=== PATIENT | female | born 1970 | race Two or more races ===

== ENCOUNTER 2019-04-24 01:13 | Emergency (ER) | payer OTHER ==
[2019-04-24] MEDS ORDERED: RANITIDINE HCL 150 MG TABLET (FP) PO ONE (01:51)
[2019-04-24] MEDS ORDERED: MAG HYDROX/AL HYDROX/SIMETH 30 ML UNIT-DOSE CUP PO ONE (01:51)
--- NOTE | 2019-04-24 01:51 | PDOC ---
History of Present Illness - General Chief Complaint: Chest Pain Stated Complaint: CHEST PAIN Time Seen by Provider: 04/24/19 01:49 - History of Present Illness Initial Comments: Aggie Núñez is a 49yo otherwise healhty woman who presents with burning throat and sternal pain that started immediately after drinking black seed oil for the first time tonight. She reports that she had acute onset of burning pain in her throat, mid-chest and epigastrium along with an episode of vomiting. She continues to have burning pain but no longer feels nauseated. She denies any other associated symptoms including lightheadedness, sweating, or difficulty breathing. Past History - Past Medical History Allergies/Adverse Reactions: Allergies Allergy/AdvReac Type Severity Reaction Status Date / Time No Known Allergies Allergy Verified 04/24/19 02:38 - Suicide/Smoking/Psychosocial Hx Smoking History: Never smoked Review of Systems - Review of Systems Comments:: General: No fevers, no chills, no weight or appetite change, no malaise HEENT: No changes in vision, no changes in hearing, no congestion, no sore throat CV: No chest pain, no palpitations, no LE edema Pulm: No SOB, no cough, no wheezing GI: See HPI, no change in bowel habits, no melena : No frequency, no urgency, no dysuria Musc: No back pain, no joint swelling, no recent injury Skin: No rash, no lesions, no erythema Endo: No excessive thirst, no heat/cold intolerance Heme: No unusual bruising or bleeding, no swollen glands Neuro: No syncope, no numbness/tingling, no focal weakness Vasc: No claudication Psych: No recent change in mood, no SI or HI *Physical Exam - Vital Signs Last Vital Signs Temp Pulse Resp BP Pulse Ox 98.7 F 72 18 110/87 97 04/24/19 01:25 04/24/19 01:25 04/24/19 01:25 04/24/19 01:25 04/24/19 01:25 - Physical Exam Comments: General: Comfortable, no acute distress HEENT: PERRL, EOMI, MMM, voice normal, normal neck ROM, no LAD Cards: RRR, no murmur appreciated Pulm: Comfortable on room air, clear to auscultation bilaterally Abd: Soft, nontender, nondistended Ext: Atraumatic. No LE edema. ROM intact Vasc: Extremities WWP Skin: Normal color, no rashes or lesions Neuro: A&Ox3, CN grossly intact, normal speech, motor/sensory grossly intact and symmetric Psych: Mood appropriate to situation Medical Decision Making - Medical Decision Making 04/24/19 01:51 Aggie Núñez is a 49yo otherwise healhty woman who presents with burning throat and sternal pain and 1x episode of vomiting that started immediately after drinking black seed oil for the first time tonight. She denies associated symptoms. - Suspect reflux v gastritis, but given age will check EKG - Maalox, lidocaine, ranitidine for symptoms 04/24/19 03:21 - Feels improved. - EKG w/ NSR, HR 69,normal asix, normal intervals, no ST changes. Normal EKG - Will d/c home with PMD follow up. Discussed with Dr Llanos. Kalina Maguire PGY2 *DC/Admit/Observation/Transfer Diagnosis at time of Disposition: Acid reflux Qualifiers: Esophagitis presence: esophagitis presence not specified Qualified Code(s): K21.9 - Gastro-esophageal reflux disease without esophagitis - Discharge Dispostion Disposition: HOME Condition at time of disposition: Stable Decision to Admit order: No - Referrals Referrals: [facility] [place] [Provider Group] - Patient Instructions Printed Discharge Instructions: DI for Heartburn Additional Instructions: Discharge Instructions: You were seen in the emergency department for burning throat pain. This is likely due to stomach upset from the supplement you took at home tonight. Your EKG did not show any problems with your heart Home Care and Follow Up: - It is recommended that you avoid supplements without discussing their use with a physician - If you have continued symptoms, you may use maalox or mylanta as needed. If the symptoms are persistent, consider using Pepcid or Xantac daily to help prevent acid reflux - Make an appointment to follow up with your regular doctor within one week. If you need to establish care, you have been given information for the [facility] clinic - Seek immediate care for any worsening symptoms, persistent vomiting, chest pain with difficulty breathing or sweating, or any other medical emergency. - Post Discharge Activity
[2019-04-24] MEDS ORDERED: LIDOCAINE VISCOUS 2% ORAL/TOP 20 ML UNIT-DOSE CUP MM ONE (01:52)
[2019-04-24 02:18] VITALS: TEMP 98.7; BMI 24.7
[2019-04-24] MEDS ORDERED: MAG HYDROX/AL HYDROX/SIMETH 30 ML UNIT-DOSE CUP ONE (02:29)
[2019-04-24] MEDS: MAG HYDROX/AL HYDROX/SIMETH -MYLANTA- ORAL SUSPENSION PO ONE ×2 (02:37→02:48)
--- NOTE | 2019-04-24 03:40 | PDOC ---
Documentation entered by Yvette Amado SCRIBE, acting as scribe for Yuly Llanos DO. Yuly Llanos DO: This documentation has been prepared by the barbara, Yvette Amado SCRIBE, under my direction and personally reviewed by me in its entirety. I confirm that the documentation accurately reflects all work , treatment, procedures, and medical decision making performed by me. Attending Attestation - Resident Resident Name: Kalina Maguire - ED Attending Attestation I have performed the following: I have examined & evaluated the patient, The case was reviewed & discussed with the resident, I agree w/resident's findings & plan - HPI HPI: 04/24/19 01:58 The patient is a 49 year old female with no reported past medical history presents to the emergency department with a burning sensation to the throat after drinking black seed oil. The son states he also drank the oil, however he didnt have any adverse reaction to the oil. Denies chest pain or shortness of breath. - Physicial Exam PE: 04/24/19 01:58 Agree with resident exam - Medical Decision Making 04/24/19 03:39 49-year-old female with throat irritation after drinking herbal supplement EKG is within normal limits Patient has no chest pain back pain or associated nausea or vomiting Plan for DC home
[2019-04-24 04:00] VITALS: BP 115/90; PULSE 74
--- NOTE | 2019-04-24 10:19 | EKG ---
Test Reason : Blood Pressure : / mmHG Vent. Rate : 069 BPM Atrial Rate : 069 BPM P-R Int : 164 ms QRS Dur : 082 ms QT Int : 400 ms P-R-T Axes : 062 048 049 degrees QTc Int : 428 ms NORMAL SINUS RHYTHM NORMAL ECG NO PREVIOUS ECGS AVAILABLE Confirmed by CE CESAR, TORRES ([id number]) on 04/24/2019 10:19:23 AM Referred By: Confirmed By:TORRES ENCINAS MD
== END 2019-04-24 03:59 | disposition home or self-care (01) ==
LOC: JER 01:13
DX: K21.9 Gastro-esophageal reflux disease without esophagitis (principal)
CPT/HCPCS: 93005; 93010; 99282-25

== ENCOUNTER 2019-08-25 14:16 | Emergency (ER) | payer OTHER ==
[2019-08-25 14:29] VITALS: BP 123/75; PULSE 78; TEMP 97.7; BMI 26.5
--- NOTE | 2019-08-25 14:42 | PDOC ---
History of Present Illness - General Chief Complaint: Injury Stated Complaint: LT SIDE RIB INJURY Time Seen by Provider: 08/25/19 14:29 History Source: Patient Exam Limitations: No Limitations (L sided rib pain X 5 days) - History of Present Illness Is this a multiple visit Asthma Patient?: No Associated Symptoms: denies: chest pain, cough, diaphoresis, fever/chills, headaches, loss of appetite, malaise, nausea/vomiting, rash, seizure, shortness of breath Past History - Travel Close contact w/someone who was outside of country & ill: No - Past Medical History Allergies/Adverse Reactions: Allergies Allergy/AdvReac Type Severity Reaction Status Date / Time No Known Allergies Allergy Verified 08/25/19 14:21 Home Medications: Ambulatory Orders Ibuprofen [Motrin Ib] 200 mg PO Q6H PRN 08/25/19 Naproxen [EC-Naproxen] 500 mg PO BID 7 Days #14 tablet 08/25/19 Naproxen [Naprosyn -] 500 mg PO BID 7 Days #14 tablet 08/25/19 Spirometers and Accessories [Mistassist] 1 each MC ACDIN 7 Days #1 each Spirometers and Accessories [Mistassist] 1 each MC ACDIN 7 Days #1 each COPD: No - Psycho Social/Smoking Cessation Hx Smoking History: Never smoked Hx Alcohol Use: No Drug/Substance Use Hx: No Review of Systems - Review of Systems Constitutional: No: Chills, Fever HEENTM: No: Nose Pain, Throat Pain, Throat Swelling, Difficulty Swallowing Respiratory: No: Cough, Shortness of Breath, SOB with Exertion, SOB at Rest, Wheezing, Productive cough Cardiac (ROS): No: Chest Pain, Lightheadedness, Palpitations, Syncope, Chest Tightness ABD/GI: No: Nausea, Vomiting Musculoskeletal: No: Back Pain, Muscle Pain Neurological: No: Numbness, Dizziness *Physical Exam - Vital Signs Last Vital Signs Temp Pulse Resp BP Pulse Ox 97.7 F 78 18 123/75 98 08/25/19 14:21 08/25/19 14:21 08/25/19 14:21 08/25/19 14:21 08/25/19 14:21 - Physical Exam General Appearance: Yes: Nourished HEENT: positive: EOMI, GEOVANNY Neck: positive: Supple Respiratory/Chest: positive: Lungs Clear, Normal Breath Sounds, Other ( tenderness reproducible in left side of ribs 6-7, no rash or ecchymosis noted) Cardiovascular: positive: Regular Rhythm, Regular Rate, S1, S2 Gastrointestinal/Abdominal: positive: Normal Bowel Sounds, Soft Neurologic: positive: sheriff's sergeant II-XII NML intact, Fully Oriented, Alert, Normal Mood/ Affect, Normal Response, Motor Strength 5/5 ED Treatment Course - RADIOLOGY Radiology Studies Ordered: Category Date Time Status CHEST PA & LAT [RAD] Stat Radiology 08/25/19 14:30 Ordered RIBS-LEFT SIDE [RAD] Stat Radiology 08/25/19 14:30 Ordered Medical Decision Making - Medical Decision Making 08/25/19 14:57 49 years old female with pain on the left side of her left rib for 5 days now after leaning for excessive amount of time 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 Patient denies any cough, chest pain, recent travel, shortness of breath, cough , fever,palpitation or radiation pain is reproducible on exam, lungs are clear xray neg for fx pt took aleve upon arrival Discharge - Discharge Information Problems reviewed: Yes Clinical Impression/Diagnosis: Rib pain on left side Condition: Stable Disposition: HOME - Admission No - Additional Discharge Information Prescriptions: Naproxen [EC-Naproxen] 500 mg PO BID 7 Days #14 tablet Naproxen [Naprosyn -] 500 mg PO BID 7 Days #14 tablet Spirometers and Accessories [Mistassist] 1 each MC ACDIN 7 Days #1 each Spirometers and Accessories [Mistassist] 1 each MC ACDIN 7 Days #1 each Prescription Drug Monitoring Program (I-STOP) results: I-STOP not reviewed - Follow up/Referral - Patient Discharge Instructions Additional Instructions: Your xray was negative for acute fracture or infection please use incentive spirometer device to exercise the lung muscle Take medication as prescribed Return to the emergency room if worsening symptoms occurs - Post Discharge Activity
== END 2019-08-25 15:45 | disposition home or self-care (01) ==
LOC: JERFT 14:16 → JER 14:16 → JERFT 15:45
DX: R07.81 Pleurodynia (principal); X50.1XXA Overexertion from prolonged static or awkward postures, initial encounter; Y93.89 Activity, other specified; Y92.018 Other place in single-family (private) house as the place of occurrence of the external cause; Y99.8 Other external cause status
CPT/HCPCS: 71046-TC-FY; 71101-TC-LT-FY; 99281-25

== ENCOUNTER 2022-04-27 15:10 | Emergency (ER) | payer OTHER ==
[2022-04-27 15:24] VITALS: BP 139/81; PULSE 72; TEMP 98.1; BMI 27.4
[2022-04-27] MEDS ORDERED: ACETAMINOPHEN 500 MG TABLET (FP) PO ONE (16:49)
[2022-04-27] MEDS ORDERED: ACETAMINOPHEN 500 MG TABLET (FP) ONE (16:56)
== END 2022-04-27 17:27 | disposition home or self-care (01) ==
LOC: JERFT 15:10 → JER 15:10 → JERFT 17:27
DX: S60.212A Contusion of left wrist, initial encounter (principal); W19.XXXA Unspecified fall, initial encounter
CPT/HCPCS: 73090-TC-LT-FY; 73110-TC-LT-FY; 99283-25